=== PATIENT | female | born 1975 | race Caucasian/White ===

== ENCOUNTER → 2018-04-01 07:50 | Outpatient (CLI) | payer OTHER, SELFPAY ==
--- NOTE | 2018-04-01 08:05 | US_ITS ---
STUDY: ABDOMINAL WALL ULTRASOUND REASON FOR EXAM: Female, 42 years old. Palpable lump near the umbilicus TECHNIQUE: Sonographic evaluation of the abdominal wall superior to the umbilicus COMPARISON: None. FINDINGS: There is sonographic evidence of a subcutaneous lymph node measuring 2.6 x 3.2 x 1.1 cm. There is some vascularity adjacent to the lymph node but there is no evidence of a fluid collection or draining sinus. US/Abdomen Limited IMPRESSION: Subcutaneous lymph node corresponds to the palpable lump just superior to the umbilicus. Electronically Signed: Mark Persaud MD at 9:15 EDT , Service support ,
[2018-04-01 08:53] LABS: Color, Urine Yellow (Yellow); Glucose, Dipstick Normal (Normal); Ketone-Dipstick Negative (Negative); Leukocyte Esterase-Dipstick 500 /ul (Negative); Nitrite-Dipstick Negative (Negative); Occult Blood-Urine 25 /ul (Negative); Protein-Dipstick 30 mg/dl (Negative); Urine Bilirubin Dipstick Negative (Negative); Urine Clarity Clear (Clear); Urine Urobilinogen Normal (Normal); Urine pH 6.5 (5.0 - 8.0)
[2018-04-01 08:55] LABS: Absolute Lymphocyte Count 1.73 X10^3/ul (0.83-4.51); Absolute Neutrophil Count 2.5 X10^3/uL (2.0-7.7); Basophil# 0.06 X10^3/uL; Basophil% 1.2 % (0-1); Eosinophil# 0.09 X10^3/uL; Eosinophils% 1.9 % (0-5); Hematocrit 36.9 % (37-47); Hemoglobin 12.5 g/dl (12.0-15.0); Lymphocyte # 1.73 X10^3/ul (4.0); Lymphocyte % 35.7 % (19-41); Mean Corp Hgb Conc 33.9 g/gl (32-36); Mean Corpuscular Hgb 31.5 pg (27.0-32.0); Mean Corpuscular Volume 92.9 fL (81-99); Mean Platelet Vol. 10.2 fl (6.2-12.0); Monocyte# 0.47 X10^3/uL; Monocyte% 9.7 % (0-10); Neutrophil # 2.49 X10^3/uL (2.7-7.7); Neutrophil % 51.3 % (47-70); Platelet Count 260 K/mm3 (150-450); RBC Distribution Width CV 12.5 % (11.6-14.6); RBC Distribution Width SD 41.8 fl (35.1-43.9); Red Blood Count 3.97 M/mm3 (4.2-5.4); White Blood Count 4.9 K/mm3 (4.4-11.0)
[2018-04-01 09:01] LABS: POSITIVE COUNT NO; POSITIVE DIFFERENTIAL NO; POSITIVE MORPHOLOGY NO
[2018-04-01 09:19] LABS: ALB/GLOB Ratio 1.3 RATIO (0.9-2.4); AST(SGOT) 10 U/L (15-37); Alanine Aminotransfer ALT/SGPT 22 U/L (13-56); Albumin, Serum 3.9 g/dL (3.2-5.0); Alkaline Phosphatase 41 U/L (45-117); Anion Gap 5 (5-15); BUN 13 mg/dL (7-18); BUN/Creat Ratio 14.5 RATIO (10-20); Calcium,Total 8.3 mg/dL (8.5-10.1); Chloride 106 mmol/L (98-107); Cholesterol 191 mg/dL (200); EST Glomerular Filtration Rate 73 mL/min (>60); Est Glom Filt Rate - Afr Amer 88 mL/min (>60); Globulin 3.1 g/dL (2.2-4.2); Glucose 96 mg/dL (74-106); High Density Lipoprotein 56 mg/dL; Sodium Level 140 mmol/L (136-145); Triglycerides 90 mg/dL; Very Low Density Lipoprotein 18 mg/dL (5-40)
== END ==
PROVIDERS: Family Provider Family Medicine; PCP Family Medicine; Visit Provider Family Medicine
DX: Z00.00 Encounter for general adult medical examination without abnormal findings (principal); R19.00 Intra-abdominal and pelvic swelling, mass and lump, unspecified site
CPT/HCPCS: 36415; 76705; 80053; 80061; 81002; 85025

== ENCOUNTER 2018-05-05 10:45 | Day surgery (SDC) | payer OTHER, SELFPAY ==
--- NOTE | 2018-05-05 | HERN_PTH ---
PATIENT: LING MARTINEZ LOC: [facility] [place] U#:[id number] AGE/SX: 42/F ROOM: RE05/05/[address]: Dr. Dave Jiménez MD : 1975 BED: DIS: 05/05/2018 SPEC #: [id number] RECD: 05/06/18 13:21 STATUS: ELIDA JOHN #: [id number] JUAN MANUEL: 05/05/18 00:[address]: Dave Jiménez DEPT: SURGICAL PATHOLOGY RECD BY: Tenzin Pascual ENTERED: 05/06/18 13:21 SP TYPE: Hernia OTHR DR: Dr. Satnam Díaz MD Tissues: HERNIA Procedures: Surgery Specimen Level II HEADER OPERATION: Open ventral hernia repair with mesh PRE-OP DIAGNOSIS: Ventral hernia without obstruction TISSUE SUBMITTED: Ventral hernia sac MICROSCOPIC DIAGNOSIS Ventral hernia sac, excision: Fragment of fibrofatty tissue consistent with hernia sac. AM:marcellus 05/07/18 MICROSCOPIC DESCRIPTION Slides are reviewed. GROSS DESCRIPTION Received in fixative is one container labeled with the patient's name and designated ventral hernia sac. The specimen consists of an irregular fragment of yellow fatty tissue measuring 3.5 x 2.6 x 1.6 cm. Sections reveal homogenous yellow cut surfaces without areas of cyst formation or necrosis. Statistical Financial Analyst sections are submitted in one cassette. / AM:marcellus 05/06/18 TC:5 CPT: 88687
[2018-05-05 11:10] VITALS: BP 128/91; PULSE 78; RESP 16; TEMP 37; O2SAT 99; BMI 27.0
[2018-05-05] MEDS: Cefazolin 2 GM in 0.9% Normal Saline 100 ML IV (13:00)
--- NOTE | 2018-05-05 13:00 | PCM.OPRPT ---
Problem List (1) Ventral hernia without obstruction or gangrene Status: Acute Report of Operation Date of Procedure: 05/05/18 Pre-Operative Diagnosis: K43.9 ventral hernia without obstruction Post-Operative Diagnosis: Same Surgery/Procedure Performed:: Ventral hernia repair with mesh Type of Anesthesia:: General Anesthesiologist: Saul Perera Description of Procedure: Patient was brought into the operating room and placed in the supine position. Under excellent general endotracheal intubation the abdomen was sterilely prepped and draped in usual fashion. Incision was made transversely above the umbilicus dissection was carried down hernia containing fat was identified. I tied this off using 0 Vicryl ties and placed back into its preperitoneal space was amazed at the defect was extremely small less than 1 cm in size. I close this defect with a bwrdrm-zi-yavac suture of #1 Nurolon. I then placed a Bard soft mesh on top of this and sutured it in place with 2-0 Nurolon's. Mesh lot number [id number] reference #[id number] Exparel was injected into the subcutaneous muscles and in the subcutaneous tissues wound was brought together in layers subcu layer of 2-0 Vicryl deep dermal layer of 3-0 Vicryl in a running 4-0 Monocryl Steri-Strips applied sterile dressings applied and the patient tolerated the procedure well - Admit VTE Documentation VTE Present on Admission: No VTE Mechan Device Prophylaxis: SCD's VTE Pharm Prophylaxis ordered?: No Reason prophylaxis not ordered:: Treatment Not Indicated
--- NOTE | 2018-05-05 13:02 | PCM.DC.HER ---
Discharge Diet: Light diet - advance as tolerated Discharge Activity: Return to Normal Activity, May Drive - when you are no longer taking narcotic pain medications., May Shower - with the bandage in place 1-2 days after surgery. Lifting Restrictions: 20 pounds for 8 weeks. Additional Activity Instructions:: Climbing stairs is fine, walking is encouraged. Sitting in bed may be uncomfortable. Sitting up using your lateral muscles (sitting up sideways) is usually more comfortable. Do not drive, work heavy equipment of sign legal documents for 24 hours. If your hernia repair was an ingunial repair, you may have scrotal swelling, an ice pack and/or athletic support can provide more comfort. Pain medications may cause nausea, you should typically eat light foods as you take your pain medications. Pain medications may also cause constipation. If you have difficulty with this, discuss with your doctor. Call your doctor if your incision/area has: Continuous Slow Oozing, Sudden Increased Bleeding, Increased Pain/ Swelling, Increased Redness, Foul Smelling Discharge Call your doctor if you observe: Fever of 101 or Higher Suture Line Care: Avoid Pulling/Pushing, Avoid Pinching/Bending Additional Dressing/Incision Instructions:: Leave the operative bandage on for 2-3 days. When you remove the bandage, leave the steri-strips on place until your follow up appointment or they fall off. Allergies/Adverse Reactions: Allergies No Known Allergies Allergy (Verified 04/28/18 12:32) Medications to take at Discharge Bisacodyl [Dulcolax] 5 mg PO DAILY 10/06/13 dicyclomine 20 mg tablet 20 mg PO QHS tab 04/09/18 pantoprazole 40 mg tablet,delayed release 40 mg PO QDAY 04/09/18 Oxycodone HCl/Acetaminophen [Percocet 5/325] 1 - 2 tab PO Q4H PRN PRN 4 Days #30 tab 05/05/18 The following prescriptions were given: Oxycodone HCl/Acetaminophen [Percocet 5/325] 1 - 2 tab PO Q4H PRN PRN 4 Days #30 tab PRN Reason: Pain Primary Care Physician: Satnam Díaz MD [Primary Care Provider] - Test Results: Test results from this visit will be discussed in further detail at your follow-up appointment, if applicable. Please Follow Up With: Dave Jiménez MD - [phone] When: Plan to have a follow up appointment in 7 days. Call to schedule.
[2018-05-05] MEDS: BUPIVACAINE LIPOSOME/PF 20 ML VIAL OPERA.SITE (13:42)
[2018-05-05 13:55] VITALS: BP 105/72; BP 128/91; PULSE 78; RESP 16; TEMP 36.6; O2SAT 98
[2018-05-05 14:00] VITALS: BP 105/73; BP 128/91; PULSE 78; RESP 16; O2SAT 98
[2018-05-05 14:15] VITALS: BP 111/73; BP 128/91; PULSE 75; RESP 16; TEMP 36.9; O2SAT 100
[2018-05-05 15:42] VITALS: BP 117/75; BP 128/91; PULSE 74; RESP 16; TEMP 36.5; O2SAT 100
== END 2018-05-05 15:56 | disposition home or self-care (01) ==
LOC: SDC 10:45 → AC 10:46
PROVIDERS: Family Provider Family Medicine; PCP Family Medicine; Visit Provider Surgery
PROC: (CPT 49560; principal; 2018-05-05 12:45)
DX: K43.9 Ventral hernia without obstruction or gangrene (principal); Z79.899 Other long term (current) drug therapy; K21.9 Gastro-esophageal reflux disease without esophagitis; K59.00 Constipation, unspecified
CPT/HCPCS: 49560; 49568; 88302; J7120; J2405; J3490

== ENCOUNTER 2018-10-21 07:51 | Day surgery (SDC) | payer OTHER, SELFPAY ==
[2018-10-21] VITALS (7 sets, daily range): BP systolic 107–130; BP diastolic 71–86; PULSE 75–93; RESP 16–18; TEMP 36.3–36.7; O2SAT 100; BMI 28.8
--- NOTE | 2018-10-21 09:00 | IMM_PTH ---
PATIENT: LING MARTINEZ LOC: [place] U#:[id number] AGE/SX: 43/F ROOM: RE10/21/[address]: Dr. Dave Jiménez MD : 1975 BED: DIS: 10/21/2018 SPEC #: [id number] RECD: 10/21/18 14:05 STATUS: ELIDA REPatricio #: [id number] JUAN MANUEL: 10/21/18 09:[address]: Dave Jiménez DEPT: IMMUNOHISTOCHEMISTRY RECD BY: Rosalia Trevizo ENTERED: 10/21/18 14:06 SP TYPE: IMMUNO OTHR DR: Dr. Satnam Díaz MD Tissues: Stomach, NOS Procedures: H Pylori (initial) PHYSICIAN & INSTITUTION [place] [id number] SPECIMEN INFORMATION: Tissue Source: A - Antral biopsy Clinical Info: Epigastric abdominal pain Specimen Number: [id number] CPT code: 89196 METHODOLOGY: Deparaffinized sections of prefer/formalin-fixed tissue or PAP/DQ stained slides are incubated with monoclonal/polyclonal antibodies/oligonucleotide probes. Localization is made via biotin free immunoperoxidase method. Appropriate controls are performed and reacted as expected. Results on target cell population are indicated in the following table: RESULTS: ANTIBODY / CLONE RESULT Block A H Pylori (polyclonal) negative These tests were developed and their performance characteristics determined by [facility]. They may not have been cleared or approved by the U.S. Food and Drug Administration. The FDA has determined that such clearance or approval is not necessary. INTERPRETATION: A. Antral biopsy: Negative for Helicobacter pylori organisms. SJ:marcellus 10/22/18
--- NOTE | 2018-10-21 09:00 | EGD_PTH ---
PATIENT: LING MARTINEZ LOC: [place] U#:[id number] AGE/SX: 43/F ROOM: RE10/21/[address]: Dr. Dave Jiménez MD : 1975 BED: DIS: 10/21/2018 SPEC #: [id number] RECD: 10/21/18 10:50 STATUS: ELIDA JOHN #: [id number] JUAN MANUEL: 10/21/18 09:[address]: Dave Jiménez DEPT: SURGICAL PATHOLOGY RECD BY: Umesh Murphy ENTERED: 10/21/18 13:22 SP TYPE: EGD BIOPSY OT DR: Dr. Satnam Díaz MD Tissues: Gastric mucous membrane Procedures: Surgery Specimen Level IV HEADER OPERATION: EGD ([facility] [place] PRE-OP DIAGNOSIS: Epigastric abdominal pain TISSUE SUBMITTED: Antral biopsy for H. pylori and pathology MICROSCOPIC DIAGNOSIS Antral biopsy: Mild gastritis. See microscopic description and comment. SJ:marcellus 10/22/18 COMMENT The results of immunohistochemistry for Helicobacter pylori will be reported separately ([id number]). MICROSCOPIC DESCRIPTION Slides are reviewed. The specimen shows fragments of gastric mucosa with chronic inflammatory cell infiltrates in the lamina propria consisting of lymphocytes and plasma cells, consistent with mild chronic gastritis. GROSS DESCRIPTION Received in fixative is one container labeled with the patient's name and designated antral biopsy. The specimen consists of one irregular fragment of light song soft tissue that measures 0.5 x 0.2 x 0.1 cm. The specimen is totally submitted in one cassette. / AM:marcellus 10/21/18 TC:3 CPT: 11369
--- NOTE | 2018-10-21 09:17 | OP.ENDO_ITS ---
Patient Name: Keisha Li Procedure Date: 10/21/2018 8:59 AM Date of : 1975 Age: 43 Procedure: Upper GI endoscopy Indications: Epigastric abdominal pain, Nausea Providers: Dave Jiménez MD Referring MD: Dave Jiménez MD Medicines: See the Anesthesia note for documentation of the administered medications Patient Profile: This is a 43 year old female. Refer to note in patient chart for documentation of history and physical. Complications: No immediate complications. Procedure: Pre-Anesthesia Assessment: - Prior to the procedure, a History and Physical was performed, and patient medications and allergies were reviewed. The patient's tolerance of previous anesthesia was also reviewed. The risks and benefits of the procedure and the sedation options and risks were discussed with the patient. All questions were answered, and informed consent was obtained. Prior Anticoagulants: The patient has taken no previous anticoagulant or antiplatelet agents. ASA Grade Assessment: II - A patient with mild systemic disease. After reviewing the risks and benefits, the patient was deemed in satisfactory condition to undergo the procedure. After obtaining informed consent, the endoscope was passed under direct vision. Throughout the procedure, the patient's blood pressure, pulse, and oxygen saturations were monitored continuously. The gastroscope was introduced through the mouth, and advanced to the second part of duodenum. The upper GI endoscopy was accomplished without difficulty. The patient tolerated the procedure well. Scope In: 9:08:59 AM Scope Out: 9:12:30 AM Total Procedure Duration Time 0 hours 3 minutes 31 seconds Findings: The Z-line was regular and was found 40 cm from the incisors. No biopsies or other specimens were collected for this exam. Localized mild inflammation characterized by congestion (edema), erosions and erythema was found in the prepyloric region of the stomach. Biopsies were taken with a cold forceps for Helicobacter pylori testing. The examined duodenum was normal. No biopsies or other specimens were collected for this exam. No hiatal hernia was identified. Impression: - Z-line regular, 40 cm from the incisors. No specimens collected. - Gastritis. Biopsied. - Normal examined duodenum. No specimens collected. Recommendation: - Discharge patient to home. - Resume previous diet. - Continue present medications. - Await pathology results. - Repeat upper endoscopy at appointment to be scheduled for surveillance. - Return to my office in 1 week. Procedure Code(s): --- Professional --- 62275, Esophagogastroduodenoscopy, flexible, transoral; with biopsy, single or multiple Diagnosis Code(s): --- Professional --- K29.70, Gastritis, unspecified, without bleeding R10.13, Epigastric pain R11.0, Nausea CPT copyright 2017 [employer]. All rights reserved. The codes documented in this report are preliminary and upon centerpuncher review may be revised to meet current compliance requirements. MD Dave Muhammad MD 10/21/2018 9:17:28 AM This report has been signed electronically. Number of Addenda: 0 Note Initiated On: 10/21/2018 8:59 AM
== END 2018-10-21 09:54 | disposition home or self-care (01) ==
LOC: EN 07:53 → AC 07:54
PROVIDERS: Family Provider Family Medicine; PCP Family Medicine; Referring Provider Surgery; Visit Provider Surgery
PROC: 0DJ08ZZ Inspection of Upper Intestinal Tract, Via Natural or Artificial Opening Endoscopic (ICD-10-PCS; CPT 43235; principal; 2018-10-21 08:55)
DX: K29.70 Gastritis, unspecified, without bleeding (principal); K21.9 Gastro-esophageal reflux disease without esophagitis; K58.9 Irritable bowel syndrome, unspecified; Z87.19 Personal history of other diseases of the digestive system; Z87.891 Personal history of nicotine dependence
CPT/HCPCS: 43239; 88305; 88342; J7120; J2405

== ENCOUNTER → 2019-01-14 | Outpatient (CLI) | payer OTHER, SELFPAY ==
[2019-01-01 08:02] VITALS: BMI 28.8
[2019-01-14 13:37] LABS: Erythrocyte Sedimentation Rate < 1 mm/hr (0-20)
[2019-01-14 13:40] LABS: Absolute Lymphocyte Count 1.87 X10^3/ul (0.83-4.51); Absolute Neutrophil Count 3.3 X10^3/uL (2.0-7.7); Basophil# 0.03 X10^3/uL; Basophil% 0.5 % (0-1); Eosinophil# 0.05 X10^3/uL; Eosinophils% 0.9 % (0-5); Hematocrit 38.5 % (37-47); Hemoglobin 12.7 g/dl (12.0-15.0); Lymphocyte # 1.87 X10^3/ul (4.0); Lymphocyte % 33.5 % (19-41); Mean Corpuscular Hgb 29.9 pg (27.0-32.0); Mean Corpuscular Volume 90.6 fL (81-99); Monocyte# 0.35 X10^3/uL; Monocyte% 6.3 % (0-10); Neutrophil # 3.27 X10^3/uL (2.7-7.7); Neutrophil % 58.6 % (47-70); Platelet Count 272 K/mm3 (150-450); RBC Distribution Width SD 42.8 fl (35.1-43.9); Red Blood Count 4.25 M/mm3 (4.2-5.4); White Blood Count 5.6 K/mm3 (4.4-11.0)
[2019-01-14 13:41] LABS: POSITIVE COUNT NO; POSITIVE DIFFERENTIAL NO; POSITIVE MORPHOLOGY NO
[2019-01-14 13:51] LABS: Internal QC Validated? YES +Cl - CLEAR BKGD; Pregnancy, Serum, hCG Quali. NEGATIVE Negative
[2019-01-14 14:07] LABS: ALB/GLOB Ratio 1.3 RATIO (0.9-2.4); AST(SGOT) 10 U/L (15-37); Alanine Aminotransfer ALT/SGPT 20 U/L (13-56); Albumin, Serum 4.1 g/dL (3.2-5.0); Alkaline Phosphatase 48 U/L (45-117); Amylase 34 U/L (25-115); Anion Gap 6 (5-15); BUN 13 mg/dL (7-18); BUN/Creat Ratio 15.5 RATIO (10-20); Calcium,Total 8.9 mg/dL (8.5-10.1); Chloride 107 mmol/L (98-107); Creatinine, Serum 0.84 mg/dL (0.55-1.02); EST Glomerular Filtration Rate 79 mL/min (>60); Est Glom Filt Rate - Afr Amer 95 mL/min (>60); Globulin 3.2 g/dL (2.2-4.2); Glucose 91 mg/dL (74-106); Potassium 3.9 mmol/L (3.5-5.1); Protein, Total 7.3 g/dL (6.4-8.2); Sodium Level 141 mmol/L (136-145); Thyroid Stim Hormone (TSH) 1.25 uIU/mL (0.358-3.74)
[2019-01-15 16:07] LABS: Endomysial Antibody IgA Negative (Negative)
[2019-01-18 13:51] LABS: Immunoglobulin A 118 mg/dL (87-352); t-Transglutaminase IgA <2 U/mL (0-3)
== END | disposition home or self-care (01) ==
LOC: LAB 12:17
PROVIDERS: Family Provider Family Medicine; PCP Family Medicine; Referring Provider Internal Medicine Gastroenterology; Visit Provider Internal Medicine Gastroenterology
DX: R10.84 Generalized abdominal pain (principal)
CPT/HCPCS: 36415; 80053; 82150; 82784; 83516; 84443; 84703; 85025; 85652; 86255

== ENCOUNTER → 2019-01-22 | Outpatient (CLI) | payer OTHER, SELFPAY ==
[2019-01-01 08:02] VITALS: BMI 28.8
--- NOTE | 2019-01-22 06:59 | CT_ITS ---
STUDY: CT ABDOMEN AND PELVIS WITH CONTRAST REASON FOR EXAM: Female, 43 years old. Epigastric pain. History of prior ventral hernia repair. RADIATION DOSAGE (If Supplied By Facility): CTDIvol = ( 11.11 ) mGy, DLP = ( 771.39 ) mGycm TECHNIQUE: Transaxial images were obtained from the dome of the diaphragm to the symphysis pubis with oral contrast. 100 IV/Oral Isovue 300 was administered. Sagittal and coronal images were reconstructed. Individualized dose optimization techniques were used for this CT. COMPARISON: Comparison is made with prior study dated May 02, 2015. FINDINGS: The visualized lung bases are unremarkable. The visualized portions of the heart are within normal limits. Normal liver. Normal gallbladder and extrahepatic biliary system. Normal spleen. Normal pancreas. Normal bilateral adrenal glands. Normal right kidney. Normal left kidney. Normal visualized stomach. Normal small intestine. Moderate amount of fecal material is seen in the colon. The appendix is visualized and appears normal. Normal abdominal aorta. Normal inferior vena cava. Normal retroperitoneum. Normal urinary bladder. Small follicles are seen in the right ovary. Normal abdominal wall. Normal osseous structures. CT/Abdomen/Pelvis WITH Contrast IMPRESSION: Normal enhanced CT of the abdomen and pelvis. Electronically Signed: Dio Martin, at 10:58 EDT , Service support ,
== END | disposition home or self-care (01) ==
PROVIDERS: Family Provider Family Medicine; PCP Family Medicine; Referring Provider Internal Medicine Gastroenterology; Visit Provider Internal Medicine Gastroenterology
DX: K59.09 Other constipation (principal); R11.0 Nausea; R10.13 Epigastric pain
CPT/HCPCS: 74177; Q9967

== ENCOUNTER 2019-03-11 10:10 | Emergency (ER) | payer OTHER, SELFPAY ==
[2019-01-01 08:02] VITALS: BMI 28.8
[2019-03-11 10:11] VITALS: BP 119/87; PULSE 108; RESP 18; TEMP 36.8; O2SAT 100; BMI 28.1
--- NOTE | 2019-03-11 10:51 | ED.VIS.GEN ---
History of Present Illness Chief Complaint: Lower Extremity Injury Informant: Patient Onset: Yesterday Context: Sudden Onset Timing: Continuous Quality: Pain Location: Posterior right ankle and leg over the Achilles tendon. Current Severity: Mild Maximum Severity: Moderate Worsened by: Pressure Relieved by: Nothing Associated Symptoms: No associated symptoms Narrative: Patient is a 43-year-old woman who presents because of posterior right foot and ankle pain that started yesterday when she crossed her right leg over her left. She localizes the pain over the Achilles tendon. She denies prior injury of the Achilles tendon or injury of the ankle. She states the pain radiated up to the calf. She now complains of pain at the insertion site of the Achilles tendon. She is able to plantar and dorsiflex without discomfort. Prior similar symptoms: No Recent Illness/Hospitalization: No - Past Medical History (1) No significant past medical history Status: Acute Past Medical History - Allergies and Home Meds Allergies/Adverse Reactions: Allergies acetaminophen [From Percocet] Allergy (Mild, Verified 03/11/19 10:13) itching oxycodone [From Percocet] Allergy (Mild, Verified 03/11/19 10:13) itching Primary Care Physician: Satnam Díaz MD [Primary Care Provider] - Prior records reviewed: Yes Past Medical History: None Surgical History: - - Ventral hernia Lives: Spouse/ Significant Other Smoking Status: Never smoker Drugs: None Review of Systems General: Denies: Chills, Fever, Malaise, Subjective, Sweats Musculoskeletal: Reports: Extremity Pain - Pain over the right Achilles tendon. Denies: Myalgias, Arthralgias, Neck pain, Back pain, Swelling Skin: Denies: Rash, Abrasions, Wounds Neurological: Denies: Weakness, Parasthesia, Numbness Hematologic: Denies: Easy bruising, Easy bleeding Allergy: Denies: Uticaria, Swelling of the mouth, Swelling of the tongue Physical Exam Vital Signs/Narrative: Vital Signs Temp Pulse Resp BP Pulse Ox 03/11/19 10:11 98.2 F 108 H 18 119/87 H 100 Inital Vital Signs reviewed: Yes General: Well nourished, Well developed, No Acute Distress Head: Normocephalic, Atraumatic Eyes: Perrl, EOMI. Negative for: Pale conjunctiva, Scleral icterus, - Cardiovascular: Regular rate, Regular rhythm Respiratory: No distress Extremities: No edema, Tenderness - Tenderness over the insertion site of the Achilles tendon. Negative for: Nontender, Calf Tenderness Skin: Normal color, No rash, No Trauma. Negative for: Cyanosis, Diaphoresis, Jaundice Neurological: Alert, Oriented x3, Cranial nerves II-XII grossly intact, Normal Strength, Normal Sensation, Normal Gait Psychological: Normal affect, Normal Mood Diagnostic/Tx/Re-eval Chest X-Ray - ED: Read by ED Physician, - - Three-view x-ray of the right ankle was interpreted by me as negative. There is no evidence of arthritis. The tendon appears intact on the lateral view. There is no asymmetry of the joints. There are no abnormalities of any bony structures. - Medical Decision Making X-ray was obtained to evaluate the calcaneus and insertion site of the Achilles tendon. Since patient has tenderness over the Achilles tendon suspect Achilles strain/tendinitis. Will treat with NSAID. ED Disposition - Plan for ED Patient: Disposition: Home or Assisted Living Instructions: Tendonitis Referrals: Satnam Díaz MD [Primary Care Provider] - 1 Week if not improving Additional Instructions: Take either 4 Advil every 8 hours for the next 3 to 5 days or 2 Aleve every 12 hours for the next 3 to 5 days.
--- NOTE | 2019-03-11 11:14 | RAD_ITS ---
STUDY: X-RAY - RIGHT ANKLE REASON FOR EXAM: Female, 43 years old. No injury, pain all night TECHNIQUE: 3 view(s) of the ankle. COMPARISON: None. FINDINGS: Normal visualized distal tibia and fibula. Normal medial and lateral malleoli. Normal tibiotalar articulation and ankle mortise. Normal visualized talus and calcaneus. The visualized subtalar, talonavicular, calcaneocuboid and tarsal articulations are normal. The soft tissue structures are unremarkable. RAD/Ankle min 3 Views IMPRESSION: Normal x-ray examination of the ankle. Electronically Signed: Horacio Neumann MD at 11:47 EDT Tel , Service support ,
== END 2019-03-11 11:49 | disposition home or self-care (01) ==
PROVIDERS: Emergency Provider Emergency Medicine; Family Provider Family Medicine; PCP Family Medicine
DX: M76.61 Achilles tendinitis, right leg (principal)
CPT/HCPCS: 73610; 99282

== ENCOUNTER → 2019-03-16 | Outpatient (CLI) | payer OTHER, SELFPAY ==
[2019-03-16 07:50] VITALS: BMI 28.1
[2019-03-16 14:18] LABS: Color, Urine Yellow (Yellow); Glucose, Dipstick Normal (Normal); Ketone-Dipstick 5 mg/dl (Negative); Leukocyte Esterase-Dipstick 500 /ul (Negative); Nitrite-Dipstick Positive (Negative); Occult Blood-Urine 250 /ul (Negative); Protein-Dipstick 30 mg/dl (Negative); Urine Bilirubin Dipstick Negative (Negative); Urine Clarity Sl. Cloudy (Clear); Urine Urobilinogen Normal (Normal)
[2019-03-16 14:24] LABS: Bacteria 3+ /hpf (None Seen); Mucous, Urine 2+ /hpf (<or=2+); Red Blood Cells-Urine 25-50 SEEN /hpf (0-5); Squamous Epithelial Cells - UA 10-25 SEEN /hpf (5-10); White Blood Cells 50-100 SEEN /hpf (0-5)
== END | disposition home or self-care (01) ==
LOC: LABSPEC 13:53
PROVIDERS: Family Provider Family Medicine; PCP Family Medicine; Referring Provider Physician Assistant Surgical; Visit Provider Physician Assistant Surgical
DX: R30.0 Dysuria (principal)
CPT/HCPCS: 81001; 87077; 87086; 87088; 87186

== ENCOUNTER → 2019-03-22 | Outpatient (CLI) | payer OTHER, SELFPAY ==
[2019-01-01 08:02] VITALS: BMI 28.8
[2019-03-16 07:50] VITALS: BMI 28.1
--- NOTE | 2019-03-22 09:16 | NM_ITS ---
CLINICAL: Female, 43 years old. Vertebra quadrant pain with nausea and vomiting. NUCLEAR BILIARY SCAN TECHNIQUE: Following the intravenous administration of 5.2 mCi of Tc Mebrofenin, hepatobiliary images was performed. Cholecystokinin (0.02 ug/kg) was then administered intravenously over an unspecified time period. COMPARISON STUDIES : NM - None. CR - Not available for review at this time. CT - 01/22/2019. MR - Not available for review at this time. US - Not available for review at this time. FINDINGS: Relatively prompt and homogeneous radiopharmaceutical concentration is noted by a normal sized liver. There are no parenchymal defects noted.. Gallbladder activity is identified at 10 minutes post radiopharmaceutical administration. Small bowel activity is identified at 30 minutes post radiopharmaceutical administration. Washout of the radiopharmaceutical by the hepatic parenchyma occurs in a normal fashion on qualitative inspection. The post Cholecystokinin gallbladder ejection fraction is calculated at 20 minutes following Cholecystokinin administration was noted to be 37% (normal greater than 35%). Ejection fraction at 30 minutes was 47%. NM/Hepatobilliary Img w/Pharm Int IMPRESSION: Normal 99m TC Mebrofenin hepatobiliary imaging survey with Cholecystokinin. A gallbladder ejection fraction calculated to be greater than 35% following the administration of Cholecystokinin makes the probability of functional hepatobiliary disease (gallbladder and/or sphincter of Oddi dyskinesia) and/or organic hepatobiliary disease (chronic acalculous cholecystitis and/or cystic duct syndrome) to be low. (Rogers Cortes al, Journal of Nuclear Medicine 32:1695, 1990). Electronically Signed: Javier Shane MD at 6:37 EDT , Service support ,
== END | disposition home or self-care (01) ==
LOC: NM 09:13
PROVIDERS: Family Provider Family Medicine; PCP Family Medicine; Referring Provider Internal Medicine Gastroenterology; Visit Provider Internal Medicine Gastroenterology
DX: R10.13 Epigastric pain (principal); R11.0 Nausea
CPT/HCPCS: 78227; A9537; J2805

== ENCOUNTER → 2019-03-24 | Outpatient (CLI) | payer OTHER, SELFPAY ==
[2019-03-16 07:50] VITALS: BMI 28.1
[2019-03-24 10:16] LABS: Absolute Lymphocyte Count 2.38 X10^3/uL (0.83-4.51); Absolute Neutrophil Count 4.1 X10^3/uL (2.0-7.7); Basophil# 0.06 X10^3/uL; Basophil% 0.8 % (0-1); Eosinophil# 0.12 X10^3/uL; Eosinophils% 1.6 % (0-5); Hematocrit 38.1 % (37-47); Hemoglobin 12.7 g/dL (12.0-15.0); Lymphocyte # 2.38 X10^3/ul (4.0); Lymphocyte % 32.6 % (19-41); Mean Corp Hgb Conc 33.3 g/dL (32-36); Mean Corpuscular Hgb 30.3 pg (27.0-32.0); Mean Corpuscular Volume 90.9 fL (81-99); Mean Platelet Vol. 10.1 fl (6.2-12.0); Monocyte# 0.59 X10^3/uL; Monocyte% 8.1 % (0-10); NRBC Flagged by Analyzer 0 % (0-5); Neutrophil # 4.12 X10^3/uL (2.7-7.7); Neutrophil % 56.5 % (47-70); Platelet Count 260 K/mm3 (150-450); RBC Distribution Width CV 12.6 % (11.6-14.6); RBC Distribution Width SD 41.6 fl (35.1-43.9); Red Blood Count 4.19 M/mm3 (4.2-5.4); White Blood Count 7.3 K/mm3 (4.4-11.0)
[2019-03-24 10:52] LABS: ALB/GLOB Ratio 1.1 RATIO (0.9-2.4); AST(SGOT) 7 U/L (15-37); Alanine Aminotransfer ALT/SGPT 22 U/L (13-56); Albumin, Serum 3.6 g/dL (3.2-5.0); Alkaline Phosphatase 48 U/L (45-117); Anion Gap 9 (5-15); BUN 15 mg/dL (7-18); BUN/Creat Ratio 17.9 RATIO (10-20); Calcium,Total 8.7 mg/dL (8.5-10.1); Chloride 107 mmol/L (98-107); Cholesterol 180 mg/dL (200); Creatinine, Serum 0.84 mg/dL (0.55-1.02); EST Glomerular Filtration Rate 79 mL/min (>60); Est Glom Filt Rate - Afr Amer 95 mL/min (>60); Globulin 3.2 g/dL (2.2-4.2); Glucose 95 mg/dL (74-106); High Density Lipoprotein 59 mg/dL; Potassium 3.5 mmol/L (3.5-5.1); Protein, Total 6.8 g/dL (6.4-8.2); Sodium Level 140 mmol/L (136-145); Triglycerides 81 mg/dL; Very Low Density Lipoprotein 16 mg/dL (5-40)
[2019-03-24 12:32] LABS: Color, Urine Yellow (Yellow); Glucose, Dipstick Normal (Normal); Ketone-Dipstick Negative (Negative); Leukocyte Esterase-Dipstick Negative /ul (Negative); Nitrite-Dipstick Negative (Negative); Occult Blood-Urine Negative /ul (Negative); Protein-Dipstick 15 mg/dl (Negative); Specific Gravity, Urine 1.025 (1.002-1.030); Urine Bilirubin Dipstick Negative (Negative); Urine Clarity Sl. Cloudy (Clear); Urine Urobilinogen Normal (Normal)
== END | disposition home or self-care (01) ==
LOC: MTLAB 07:30
PROVIDERS: Family Provider Family Medicine; PCP Family Medicine; Referring Provider Family Medicine; Visit Provider Family Medicine
DX: Z00.00 Encounter for general adult medical examination without abnormal findings (principal); R59.1 Generalized enlarged lymph nodes
CPT/HCPCS: 36415; 80053; 80061; 81002; 85025

== ENCOUNTER → 2020-03-17 | Outpatient (CLI) | payer OTHER, SELFPAY ==
[2020-03-17 07:23] VITALS: BMI 28.1
[2020-03-17 10:47] LABS: Mucous, Urine 0 SEEN /hpf (<or=2+)
[2020-03-17 10:59] LABS: Color, Urine Yellow (Yellow); Glucose, Dipstick Normal (Normal); Ketone-Dipstick Negative (Negative); Leukocyte Esterase-Dipstick 500 /ul (Negative); Nitrite-Dipstick Negative (Negative); Occult Blood-Urine 250 /ul (Negative); Protein-Dipstick 30 mg/dl (Negative); Urine Bilirubin Dipstick Negative (Negative); Urine Clarity Sl. Cloudy (Clear); Urine Urobilinogen Normal (Normal)
[2020-03-17 11:09] LABS: Bacteria 1+ /hpf (None Seen); Red Blood Cells-Urine 25-50 SEEN /hpf (0-5); Squamous Epithelial Cells - UA 0-5 SEEN /hpf (5-10); White Blood Cells 25-50 SEEN /hpf (0-5)
== END | disposition home or self-care (01) ==
LOC: LABSPEC 10:33
PROVIDERS: PCP Family Medicine; Referring Provider Physician Assistant Surgical; Visit Provider Physician Assistant Surgical
DX: R35.0 Frequency of micturition (principal)
CPT/HCPCS: 81001; 87077; 87086; 87088; 87186

== ENCOUNTER → 2020-04-12 12:24 | Outpatient (CLI) | payer OTHER, SELFPAY ==
[2020-03-17 07:23] VITALS: BMI 28.1
[2020-04-12 15:29] LABS: Color, Urine Yellow (Yellow); Glucose, Dipstick Normal (Normal); Ketone-Dipstick Negative (Negative); Leukocyte Esterase-Dipstick 500 /ul (Negative); Nitrite-Dipstick Negative (Negative); Occult Blood-Urine Negative /ul (Negative); Protein-Dipstick Negative (Negative); Urine Bilirubin Dipstick Negative (Negative); Urine Clarity Clear (Clear); Urine Urobilinogen Normal (Normal)
[2020-04-12 15:33] LABS: Absolute Neutrophil Count 3.8 X10^3/uL (2.0-7.7); Basophil# 0.07 X10^3/uL; Basophil% 1.1 % (0-1); Eosinophil# 0.04 X10^3/uL; Eosinophils% 0.6 % (0-5); Hematocrit 38.7 % (37-47); Hemoglobin 12.4 g/dL (12.0-15.0); Lymphocyte % 29.4 % (19-41); Mean Corpuscular Hgb 30.1 pg (27.0-32.0); Mean Corpuscular Volume 93.9 fL (81-99); Mean Platelet Vol. 9.9 fl (6.2-12.0); Monocyte# 0.59 X10^3/uL; Monocyte% 9.1 % (0-10); NRBC Flagged by Analyzer 0 % (0-5); Neutrophil # 3.83 X10^3/uL (2.7-7.7); Neutrophil % 59.2 % (47-70); Platelet Count 310 K/mm3 (150-450); RBC Distribution Width CV 12.7 % (11.6-14.6); RBC Distribution Width SD 43.7 fl (35.1-43.9); Red Blood Count 4.12 M/mm3 (4.2-5.4); White Blood Count 6.5 K/mm3 (4.4-11.0)
[2020-04-12 15:49] LABS: ALB/GLOB Ratio 1.3 RATIO (0.9-2.4); AST(SGOT) 10 U/L (15-37); Alanine Aminotransfer ALT/SGPT 29 U/L (13-56); Albumin, Serum 4.1 g/dL (3.2-5.0); Alkaline Phosphatase 46 U/L (45-117); Anion Gap 5 (5-15); BUN 10 mg/dL (7-18); BUN/Creat Ratio 12.2 RATIO (10-20); Calcium,Total 8.5 mg/dL (8.5-10.1); Chloride 104 mmol/L (98-107); Cholesterol 197 mg/dL (200); Creatinine, Serum 0.82 mg/dL (0.55-1.02); EST Glomerular Filtration Rate 81 mL/min (>60); Est Glom Filt Rate - Afr Amer 97 mL/min (>60); Globulin 3.1 g/dL (2.2-4.2); Glucose 95 mg/dL (74-106); High Density Lipoprotein 58 mg/dL; Potassium 3.8 mmol/L (3.5-5.1); Protein, Total 7.2 g/dL (6.4-8.2); Sodium Level 136 mmol/L (136-145); Triglycerides 122 mg/dL; Very Low Density Lipoprotein 24 mg/dL (5-40)
== END ==
PROVIDERS: PCP Family Medicine; Referring Provider Family Medicine; Visit Provider Family Medicine
DX: Z00.00 Encounter for general adult medical examination without abnormal findings (principal)
CPT/HCPCS: 36415; 80053; 80061; 81002; 85025

== ENCOUNTER → 2021-04-26 07:26 | Outpatient (CLI) | payer OTHER, SELFPAY ==
[2021-04-26 10:19] LABS: Absolute Lymphocyte Count 2.02 X10^3/uL (0.83-4.51); Absolute Neutrophil Count 2.6 X10^3/uL (2.0-7.7); Basophil# 0.07 X10^3/uL; Basophil% 1.3 % (0-1); Eosinophil# 0.08 X10^3/uL; Eosinophils% 1.5 % (0-5); Hematocrit 36.3 % (37-47); Hemoglobin 12.1 g/dL (12.0-15.0); Lymphocyte # 2.02 X10^3/ul (0.83-4.51); Mean Corp Hgb Conc 33.3 g/dL (32-36); Mean Corpuscular Hgb 30.6 pg (27.0-32.0); Mean Corpuscular Volume 91.7 fL (81-99); Mean Platelet Vol. 10.1 fl (6.2-12.0); Monocyte# 0.48 X10^3/uL; NRBC Flagged by Analyzer 0 % (0-5); Neutrophil # 2.64 X10^3/uL (2.7-7.7); Neutrophil % 49.8 % (47-70); Platelet Count 265 K/mm3 (150-450); RBC Distribution Width CV 12.6 % (11.6-14.6); RBC Distribution Width SD 42.1 fl (35.1-43.9); Red Blood Count 3.96 M/mm3 (4.2-5.4); White Blood Count 5.3 K/mm3 (4.4-11.0)
[2021-04-26 11:34] LABS: ALB/GLOB Ratio 1.1 RATIO (0.9-2.4); AST(SGOT) 8 U/L (15-37); Alanine Aminotransfer ALT/SGPT 22 U/L (13-56); Albumin, Serum 3.5 g/dL (3.2-5.0); Alkaline Phosphatase 51 U/L (45-117); Anion Gap 4 (5-15); BUN 12 mg/dL (7-18); Calcium,Total 8.5 mg/dL (8.5-10.1); Chloride 106 mmol/L (98-107); Cholesterol 204 mg/dL (200); Creatinine, Serum 0.71 mg/dL (0.55-1.02); EST Glomerular Filtration Rate 95 mL/min (>60); Est Glom Filt Rate - Afr Amer 115 mL/min (>60); Globulin 3.1 g/dL (2.2-4.2); Glucose 96 mg/dL (74-106); High Density Lipoprotein 62 mg/dL; Potassium 3.5 mmol/L (3.5-5.1); Protein, Total 6.6 g/dL (6.4-8.2); Sodium Level 139 mmol/L (136-145); Triglycerides 133 mg/dL; Very Low Density Lipoprotein 27 mg/dL (5-40)
== END ==
PROVIDERS: PCP Family Medicine; Referring Provider Family Medicine; Visit Provider Family Medicine
DX: Z00.00 Encounter for general adult medical examination without abnormal findings (principal); Z12.31 Encounter for screening mammogram for malignant neoplasm of breast
CPT/HCPCS: 36415; 80053; 80061; 85025

== ENCOUNTER → 2021-05-21 | Outpatient (CLI) | payer OTHER, SELFPAY | END | disposition home or self-care (01) | LOC: LABSPEC 10:20 | PROVIDERS: PCP Family Medicine; Visit Provider Physician Assistant Surgical | DX: Z11.52 Encounter for screening for COVID-19 (principal) | CPT/HCPCS: 87635; U0005; U0003 ==

== ENCOUNTER → 2022-04-22 | Outpatient (CLI) | payer OTHER, SELFPAY | END | disposition home or self-care (01) | LOC: LABSPEC 09:55 | PROVIDERS: PCP Family Medicine; Referring Provider Physician Assistant Surgical; Visit Provider Physician Assistant Surgical | DX: R30.9 Painful micturition, unspecified (principal) | CPT/HCPCS: 87086; 87088; 87186 ==

== ENCOUNTER → 2022-08-15 | Outpatient (CLI) | payer OTHER, SELFPAY ==
[2022-08-15 10:16] LABS: Color, Urine Yellow (Yellow); Glucose, Dipstick Normal (Normal); Ketone-Dipstick 5 mg/dl (Negative); Leukocyte Esterase-Dipstick 500 /ul (Negative); Nitrite-Dipstick Positive (Negative); Occult Blood-Urine 250 /ul (Negative); Protein-Dipstick 30 mg/dl (Negative); Urine Bilirubin Dipstick Negative (Negative); Urine Clarity Turbid (Clear); Urine Urobilinogen Normal (Normal)
[2022-08-15 10:30] LABS: Bacteria 4+ /hpf (None Seen); Mucous, Urine 2+ /hpf (<or=2+); Red Blood Cells-Urine 25-50 SEEN /hpf (0-5); Squamous Epithelial Cells - UA 0-5 SEEN /hpf (5-10); White Blood Cells >100 SEEN /hpf (0-5)
== END | disposition home or self-care (01) ==
LOC: LABSPEC 09:58
PROVIDERS: PCP Family Medicine; Visit Provider Physician Assistant
DX: N30.00 Acute cystitis without hematuria (principal)
CPT/HCPCS: 81001; 87077; 87086; 87088; 87186

== ENCOUNTER → 2022-09-05 | Outpatient (CLI) | payer OTHER, SELFPAY ==
--- NOTE | 2022-09-05 12:44 | US_ITS ---
STUDY: RENAL ULTRASOUND - COMPLETE REASON FOR EXAM: Female, 46 years old. Flank pain TECHNIQUE: Ultrasound evaluation of the kidneys was performed with real-time and static mares-scale imaging. COMPARISON: None. FINDINGS: RIGHT KIDNEY: Normal location of the right kidney, which is normal in size. The right kidney measures 13.1 x 5.7 x 4.5 cm. There is a normal cortex of the right kidney. The renal cortex measures 1.6 cm. There is no right renal mass or cyst. There are no right renal calculi. There is no right hydronephrosis. DISTAL RIGHT URETER: There is non-visualization of the distal right ureter. There is no demonstrated right ureterovesical junction calculus. There is a visualized right ureteral jet. LEFT KIDNEY: Normal location of the left kidney, which is normal in size. The left kidney measures 10.4 x 4.5 x 4.9 cm. There is a normal cortex of the left kidney. The renal cortex measures 1.8 cm. There is no left renal mass or cyst. There are no left renal calculi. There is no left hydronephrosis. DISTAL LEFT URETER: There is non-visualization of the distal left ureter. There is no demonstrated left ureterovesical junction calculus. There is a visualized left ureteral jet. AORTA: There is no elongation or tortuosity of the abdominal aorta. I.V.C.: The IVC is patent. BLADDER: The bladder is incompletely distended with a volume of 72 mL postvoid residual is 13. Incidental note is made of cholelithiasis US/Kidney and Bladder IMPRESSION: Sonographically normal kidneys Cholelithiasis Electronically Signed: Mark Persaud MD at 15:25 EST ,
== END | disposition home or self-care (01) ==
PROVIDERS: PCP Family Medicine; Visit Provider Urology
DX: K80.20 Calculus of gallbladder without cholecystitis without obstruction (principal); N39.0 Urinary tract infection, site not specified
CPT/HCPCS: 76770

== ENCOUNTER 2023-04-25 08:12 | Emergency (ER) | payer OTHER, SELFPAY ==
[2023-04-25 08:13] VITALS: BP 148/88; PULSE 91; RESP 14; TEMP 35.8; O2SAT 100; BMI 28.8
--- NOTE | 2023-04-25 08:23 | EDS_ITS ---
HPI HPI - GI History of Present Illness Chief Complaint: Abd Pain Detail of Chief Complaint: Epigastric pain. Informant: patient Abdominal Pain/Flank Pain Onset: Today and Yesterday Context: Gradual Onset Timing: Continuous Quality: Aching and Cramping Location: Epigastric Current Severity: Mild Maximum Severity: Mild Nausea/Vomiting/Emesis GI Symptom: Positive for Nausea and Vomiting Onset: Today Quality: Positive for Nonbilious Severity: Mild Diarrhea/Melena/Hematochezia GI Symptom: Negative for Diarrhea, Melena or Hematochezia Associated Symptoms Associated Symptoms: Negative for Dysuria, Frequency, Hematuria or Urgency Narrative Narrative: 47-year-old female history of irritable bowel. Prior hernia repair surgery and cholecystectomy earlier this year. States around 5 PM yesterday had onset of epigastric and upper abdominal discomfort. Nausea and vomiting today. No hematemesis. No melena. No fever. No weight change. No diarrhea. No dysuria. No lower abdominal discomfort. Nothing particular makes it feel better or worse. Prior similar symptoms: Yes Recent Illness/Hospitalization: No PFSH PFSH Medical History Acute bronchitis, unspecified Acute pharyngitis, unspecified Constipation Encounter for screening for COVID-19 GERD (gastroesophageal reflux disease) History of duodenal ulcer Urinary tract infection with hematuria Home Medications bisacodyl 5 mg tablet,delayed release 5 mg PO DAILY 10/06/13 [History Last Taken 10/05/13] dicyclomine 20 mg tablet 20 mg PO QHS 04/09/18 [History Last Taken Unknown] pantoprazole 40 mg tablet,delayed release 40 mg PO QDAY 04/09/18 [History Last Taken 10/21/18 06:45] Allergy/AdvReac Type Severity Reaction Status Date / Time acetaminophen [From Percocet] Allergy Mild itching Verified 04/25/23 08:16 oxycodone [From Percocet] Allergy Mild itching Verified 04/25/23 08:16 Family History Son Asthma Surgical History History of colonoscopy History of esophagogastroduodenoscopy (EGD) History of esophagogastroduodenoscopy (EGD) (~10/21/18) History of umbilical hernia repair History of ventral hernia repair (~04/2018) Social History Smoking Status: Never smoker alcohol intake: never ROS ROS ED ROS Narrative Epigastric abdominal pain. Nausea and vomiting. Review of Systems ROS Unobtainable: Denies due to encephalopathy Constitutional Constitutional ED: Denies chills or fever(s) ENT ENT ED: Denies ear pain Cardiovascular Cardiovascular: Denies chest pain Respiratory/Chest Respiratory/Chest: Denies cough Gastrointestinal Gastrointestinal: Reports abdominal pain, nausea and vomiting; Denies constip ation, diarrhea or melena Genitourinary Genitourinary ED: Denies dysuria or hematuria Musculoskeletal Musculoskeletal: Denies arthralgias Integumentary Denies abscess Neurologic Neurologic: Denies headache(s) Psychiatric Psychiatric: Denies anxiety Endocrine Endocrinology: Denies polydipsia Hematologic/Lymphatic Hematologic/Lymphatic: Denies easy bleeding Allergic/Immunologic Allergic/Immunologic ED: Denies mouth swelling or tongue swelling EXAM Physical Exam Narrative Exam Narrative: 47-year-old female no acute distress. Vital signs stable afebrile. H EENT exam unremarkable. Moist extremities. Neck nontender. No lymphadenopathy. Lungs clear to auscultation bilaterally. Heart regular rate and rhythm rate about 85 no murmur. Chest wall nontender. Abdomen soft nondistended normal bowel sounds without peritoneal signs. No right upper or right lower quadrant tenderness. Mild epigastric discomfort. No pulsatile mass. No distention. No hernia. No lower quadrant tenderness. No Díaz sign. No McBurney's point tenderness. Very benign abdominal exam. Moving all 4 extremities. Nontender. Back nontender. She is awake alert. No focal motor deficits. Const Vital Signs: 04/25/23 08:13 Temperature 96.4 F L Temperature Source Temporal Pulse Rate 91 Respiratory Rate 14 Blood Pressure 148/88 H Blood Pressure Mean 108 Pulse Ox 100 Oxygen Delivery Method Room Air Positive well nourished and well developed; Negative for obese, cachectic, contractures or unkempt General Appearance ED: well developed and NAD; Negative for unkempt, cachectic, contractures or pallor Nutritional Appearance: Negative for cachectic or obese HEENT Reports moist mucous membranes normocephalic and atraumatic; Negative for trauma or tenderness Eyes PERRL and EOMs intact bilaterally General Eye ED: Negative for pale conjunctiva or scleral icterus Neck no lymphadenopathy, supple and no JVD General: Negative for tenderness Resp normal respiratory effort and clear to auscultation bilaterally Effort and Inspection: Negative for respiratory distress Auscultation: Negative for rales, rhonchi or wheezes Cardio regular rate, regular rhythm, S1 normal heart sound, S2 normal heart sound and no murmurs Rate: Negative for bradycardia or tachycardic Rhythm: Negative for abnormal rhythm GI non-distended and no masses; Negative for non-tender Inspection: Negative for abdominal distention Auscultation: normoactive bowel sounds Palpation: soft and tender; Negative for guarding, rigid, hepatomegaly, splenomegaly, hernia, mass, pulsatile mass or rebound tenderness present Back/Spine no CVA tenderness General Back: Negative for CVA tenderness Cervical Spine: Negative for cervical spine tenderness Thoracic Spine / Upper Back: Negative for thoracic spinal tenderness Lumbar Spine / Lower Back: Negative for lumbar spinal tenderness Extremity full ROM General Extremety ED: Negative for edema or tenderness General Extremity: Negative for edema Neuro CN's II-XII intact bilaterally and moves all extremities Sensorium / Orientation: alert, oriented to person, oriented to place and oriented to time; Negative for orientation impaired, confused, lethargic or stuporous Motor Exam: strength 5/5 throughout Psych mental status grossly normal and thought process normal Appearance: Negative for unkempt Attitude: No agitated Mood & Affect: Negative for depressed, anxious or tearful Skin no wounds General Skin Exam: Negative for jaundice or pallor Lesions: no lesions and No lesion noted Rashes: no rashes and No rashes noted Trauma: Negative for abrasion Nails: Negative for discolored MDM MDM MDM Narrative Medical decision making narrative: 47-year-old female history of IBS with upper abdominal pain. No prior history of pancreatitis. Cholecystectomy earlier this year. She took Bentyl x3 without any relief. Currently she is waiting for nausea. Screening labs are being obtained. She has had prior CAT scans in the past without any significant findi ngs. She had an unremarkable HIDA scan prior to having her cholecystectomy. She will be given IV Protonix this may be secondary to acute gastritis. Repeat exam at 9:15 AM patient doing well. Abdomen benign. We went over her test results. Both she and her comfortable with her being discharged home. She does not need any further testing. She is on a proton pump inhibitor at home she will continue that. Follow-up with your doctor if not improving or return if worse. History & Record Review Discussion w/independent historian: Patient Additional record(s) reviewed:: Prior inpatient record, Prior outpatient record, Prior ED visit and Prior labs Lab Data Attestation: I reviewed the patient's lab results. Lab results narrative: CBC shows a slightly elevated white count of 14.3. H&H of 13 and 41. Platelet count 305. CMP shows normal anion gap of 5. Normal BUN and creatinine 11 and 0.7. Glucose is 123. Liver enzymes are normal. Lipase is normal at 23. Labs: Laboratory Results - last 24 hr 04/25/23 08:26 WBC 14.3 H RBC 4.41 Hgb 13.3 Hct 41.8 MCV 94.8 MCH 30.2 MCHC 31.8 L RDW Std Deviation 44.3 H RDW Coeff of Jose 12.7 Plt Count 305 MPV 9.7 Immature Gran % (Auto) 0.300 Neut % (Auto) 85.3 H Lymph % (Auto) 8.2 L [place] % (Auto) 5.7 Eos % (Auto) 0.1 Baso % (Auto) 0.4 Absolute Neuts (auto) 12.2 H Absolute Lymphs (auto) 1.18 Nucleated RBC % 0 Sodium 137 Potassium 3.5 Chloride 107 Carbon Dioxide 25.0 Anion Gap 5 BUN 11 Creatinine 0.79 Estim Creat Clear Calc 76.02 Est GFR (MDRD) Af Amer 100 Est GFR (MDRD) Non-Af 83 BUN/Creatinine Ratio 13.9 Glucose 123 H Calcium 8.5 Total Bilirubin 0.30 AST 7 L ALT 19 Alkaline Phosphatase 56 Total Protein 7.2 Albumin 3.7 Globulin 3.5 Albumin/Globulin Ratio 1.1 Lipase 23 Discharge Plan Triage Chief Complaint: Abd Pain ED Provider: Parth Sánchez Dx/Rx/DC Orders Clinical Impression: Gastritis, Abdominal pain Instructions: Abdominal Pain Prescriptions: No Action dicyclomine 20 mg tablet 20 mg PO QHS pantoprazole 40 mg tablet,delayed release (DR/EC) 40 mg PO QDAY bisacodyl 5 MG tablet 5 mg PO DAILY Primary Care Provider: Satnam Díaz Referrals: Satnam Díaz MD [Primary Care Provider] - As Needed Activity Restrictions/Additional Instructions: [place] diet increase slowly as tolerated. Continue to use your pantoprazole at home. Follow-up with your doctor if not improving or return if you are feeling worse such as vomiting or dark or bloody stools or fever. At this time your labs are unremarkable. Disposition Disposition: Home, Self Care
[2023-04-25 08:37] LABS: Absolute Lymphocyte Count 1.18 X10^3/uL (0.83-4.51); Absolute Neutrophil Count 12.2 X10^3/uL (2.0-7.7); Basophil# 0.06 X10^3/uL; Basophil% 0.4 % (0-1); Eosinophil# 0.01 X10^3/uL; Eosinophils% 0.1 % (0-5); Hematocrit 41.8 % (37-47); Hemoglobin 13.3 g/dL (12.0-15.0); Lymphocyte # 1.18 X10^3/ul (0.83-4.51); Lymphocyte % 8.2 % (19-41); Mean Corp Hgb Conc 31.8 g/dL (32-36); Mean Corpuscular Hgb 30.2 pg (27.0-32.0); Mean Corpuscular Volume 94.8 fL (81-99); Mean Platelet Vol. 9.7 fl (6.2-12.0); Monocyte# 0.81 X10^3/uL; Monocyte% 5.7 % (0-10); NRBC Flagged by Analyzer 0 % (0-5); Neutrophil % 85.3 % (47-70); Platelet Count 305 K/mm3 (150-450); RBC Distribution Width CV 12.7 % (11.6-14.6); RBC Distribution Width SD 44.3 fl (35.1-43.9); Red Blood Count 4.41 M/mm3 (4.2-5.4); White Blood Count 14.3 K/mm3 (4.4-11.0)
[2023-04-25 08:51] LABS: ALB/GLOB Ratio 1.1 RATIO (0.9-2.4); AST(SGOT) 7 U/L (15-37); Alanine Aminotransfer ALT/SGPT 19 U/L (13-56); Albumin, Serum 3.7 g/dL (3.2-5.0); Alkaline Phosphatase 56 U/L (45-117); Anion Gap 5 (5-15); BUN 11 mg/dL (7-18); BUN/Creat Ratio 13.9 RATIO (10-20); Calcium,Total 8.5 mg/dL (8.5-10.1); Chloride 107 mmol/L (98-107); Creatinine, Serum 0.79 mg/dL (0.55-1.02); EST Glomerular Filtration Rate 83 mL/min (>60); Est Glom Filt Rate - Afr Amer 100 mL/min (>60); Estimated Creatinine Clearance 76.02 ml/min; Globulin 3.5 g/dL (2.2-4.2); Glucose 123 mg/dL (74-106); Lipase 23 U/L (13-75); Potassium 3.5 mmol/L (3.5-5.1); Protein, Total 7.2 g/dL (6.4-8.2); Sodium Level 137 mmol/L (136-145)
== END 2023-04-25 09:21 | disposition home or self-care (01) ==
PROVIDERS: Emergency Provider Emergency Medicine; PCP Family Medicine; Visit Provider Emergency Medicine
DX: R10.9 Unspecified abdominal pain (principal); K29.70 Gastritis, unspecified, without bleeding; Z90.49 Acquired absence of other specified parts of digestive tract; K59.00 Constipation, unspecified; K58.9 Irritable bowel syndrome, unspecified; K21.9 Gastro-esophageal reflux disease without esophagitis; Z79.899 Other long term (current) drug therapy
CPT/HCPCS: 80053; 83690; 85025; 96365; 99283; A4216

== ENCOUNTER 2024-08-06 08:33 | Day surgery (SDC) | payer OTHER, SELFPAY ==
--- NOTE | 2024-08-04 12:22 | PCM.HP.BLA ---
History and Physical Date of Admission: 08/06/24 Expand All Collapse All Pre-Op History and Physical HPI: The patient is a 48 year old female presenting for pre-operative visit. She is scheduled for Hysteroscopy D&C and polypectomy , and IUD insertion for AUB, endometrial polyp on biopsy on 08/06/24. Procedure discussed along with risks, benefits and complications. Other alternatives discussed for management. Consent form signed? Yes. PAST MEDICAL HISTORY PAST MEDICAL HISTORY Diagnosis Date ? IBS (irritable bowel syndrome) ? Recurrent UTI PAST SURGICAL HISTORY PAST SURGICAL HISTORY Procedure Laterality Date ? COLONOSCOPY GEN ANES 2019 Dr Leiva - every 5 years due to polyps ? EGD 10/21/2018 mild gastritis ? EGD 05/01/2015 ? EGD W/O BRSH SPEC VARICIES INJ 02/27/2023 ? LAPAROSCOPIC CHOLECYSTECTOMY 12/26/2022 ? LIG/TRNSXJ FLP TUBE ABDL/VAG APPR UNI/BI Tubal ligation ? PAST SURGICAL HISTORY OF vein stripping ? RPR UMBILICAL HRNA 5 YRS/> REDUCIBLE Hernia repair, umbilical >5yr CURRENT MEDICATIONS Current Outpatient Medications Medication Sig Dispense Refill ? pantoprazole DR (PROTONIX) 40 mg tablet Take 1 tablet by mouth once daily 90 tablet 3 ? TRULANCE 3 mg tablet Take 1 tablet (3 mg) by mouth once daily. 90 tablet 3 ? sucralfate (CARAFATE) 1 gram tablet Take one tablet by mouth before meals and at bedtime as needed 100 tablet 0 ? miSOPROStol (CYTOTEC) 200 mcg tablet Insert 2 tablets vaginally night prior to EMB and 2 tablets morning of procedure. Each dose should be in vagina for 6-8 hours. 4 tablet 0 ? dicyclomine (BENTYL) 20 mg tablet Take 1 tablet by mouth daily at bedtime. 90 tablet 3 ? cephALEXin (KEFLEX) 250 mg capsule Take 1 capsule by mouth once daily. ? bisacodyl EC (DULCOLAX) 5 mg EC tablet Take 5 mg by mouth once daily as needed. No current facility-administered medications for this visit. ALLERGIES: Acetaminophen, Oxycodone, and Oxycodone-Acetaminophen PERSONAL HISTORY: SOCIAL HISTORY Social History Tobacco Use ? Smoking status: Former Current packs/day: 0.00 Types: Cigarettes Quit date: 09/08/2004 Years since quittin.8 ? Smokeless tobacco: Never ? Tobacco comments: quit smoking five months ago. (today's date is 03/27/2006) Vaping Use ? Vaping status: Never Used Substance Use Topics ? Alcohol use: Not Currently ? Drug use: Never FAMILY HISTORY: FAMILY HISTORY FAMILY HISTORY Problem Relation Age of Onset ? Emphysema Father smoker ? other (OVERDOSE) Mother AGE 48 REVIEW OF SYMPTOMS: negative except as noted above PHYSICAL EXAMINATION: VITALS: Blood pressure 150/82, height 162.6 cm (5' 4), weight 74.4 kg (164 lb), last menstrual period 05/27/2024. GENERAL: The patient is well nourished, well hydrated in no acute distress. , The patient is oriented to time, place, and person. NECK: rull range of motion IMPRESSION: 48 yo with AUB, endometrial polyp PLAN: Hysteroscopy, D&C, polypectomy with symphion, Liletta IUD insertion Pt has been counseled on risks/benefits and alternatives of surgery including but not limited to anesthesia, bleeding, infection, uterine perforation with subsequent injury to pelvic structures including bowel, bladder, ureters and vessels. Pt wishes to proceed with surgery at this time. Pre and post op instructions reviewed I have reviewed and updated past medical and surgical history, medications and allergies Genoveva Deleon MD Office Visit on 07/23/2024 Note shared with patient
--- NOTE | 2024-08-06 08:45 | PCM.PRE.AN2 ---
ASA Classification* ASA Classification ASA Classification: 2 Assessment & Plan Anesthesia* Anesthesia Assessment Anesthesia Assessment: Discussed sedation and/or anesthesia options, risks, benefits, and alternatives with patient/parents/legal guardian/POA. Questions invited. The patient/parents/legal guardian/POA seems to understand and agrees to proceed with anesthesia plan. Reviewed the physical assessment, medical history, allergy history and patient home medications list prior to surgery/procedure/anesthetic and documented any changes. Performed airway and anesthesia risk assessments. Anesthesia Type Anesthesia Type: MAC Anesthesia Focused Assessment* Airway Assessment Mouth opens: >3 cm Mallampati Score: II Focused Labs Anesthesia Preop lab: CBC WBC 14.3 K/mm3 (4.4-11.0) H 04/25/23 08:26 RBC 4.41 M/mm3 (4.2-5.4) 04/25/23 08:26 Hgb 13.3 g/dL (12.0-15.0) 04/25/23 08:26 Hct 41.8 % (37-47) 04/25/23 08:26 Plt Count 305 K/mm3 (150-450) 04/25/23 08:26 CHEMISTRY Potassium 3.5 mmol/L (3.5-5.1) 04/25/23 08:26 Sodium 137 mmol/L (136-145) 04/25/23 08:26 BUN 11 mg/dL (7-18) 04/25/23 08:26 Creatinine 0.79 mg/dL (0.55-1.02) 04/25/23 08:26 Glucose 123 mg/dL (74-106) H 04/25/23 08:26 TSH 1.25 uIU/mL (0.358-3.74) 01/14/19 12:20 COAG Tst Clinic Negative 08/15/22 08:51 Pre-Assessment Diagnosis/Proposed Procedure Planned Operative Procedure(s): HYSTEROSCOPY D&C POLYPECTOMY INSERTION LILETTA IUD Anesthesia History Anesthesia History - mentally retarded teacher: Anesthesia History - mentally retarded teacher Hx Hospitalization No 07/27/24 13:11 Any Problems With Anesthesia No 07/27/24 13:11 Cholinesterase deficiency No 07/27/24 13:11 You/Your Family Experience No 07/27/24 13:11 fever (hyperthermia) with Relationship Recent Exposure to Contagious No 10/21/18 08:05 Disease Does patient have nerve No 07/27/24 13:11 stimulator Patient instructed to have device shut off --Does patient have Pacemaker or ICD? When Was Last Pacemaker Check QUESTION #4 FULL TEXT: You/Your Family Experience fever (hyperthermia) with Anesthesia Last Oral Intake Last Oral intake: Last Oral Intake NPO since Meds taken in AM with sips of water? Meds patient instructed to take am of surgery PONV PONV - mentally retarded teacher: PONV - mentally retarded teacher Female Yes 07/27/24 13:11 HX of Motion Sickness No 07/27/24 13:11 HX of N/V After Surgery No 07/27/24 13:11 Non-Smoker Yes 07/27/24 13:11 Duration of Surgery greater No 07/27/24 13:11 than 60 minutes Number of Risk Factors 2 07/27/24 13:11 PONV Score Moderate Risk 07/27/24 13:11 Height & Weight Height & Weight: Anesthesia: Height & Weight Height 5 ft 4 in 01/27/24 07:56 Respiratory Assessment Respiratory Assessment - mentally retarded teacher: Respiratory Tract Infection Hx - mentally retarded teacher Hx Respiratory Tract Infection No 07/27/24 13:11 STOP Sleep Apnea STOP Sleep Apnea - mentally retarded teacher: STOP Sleep Apnea - mentally retarded teacher Hx Hypertension No 07/27/24 13:11 Hx Sleep Apnea No 07/27/24 13:11 CPAP BIPAP Do you snore loudly (louder No 07/27/24 13:11 than talking or can be heard Do you often feel tired/ No 07/27/24 13:11 fatigued/ sleepy during daytime? Has anyone observed you stop No 07/27/24 13:11 breathing during sleep? STOP Results Negative 07/27/24 13:11 QUESTION #5 FULL TEXT : Do you snore loudly (louder than talking or can be heard through closed doors)? 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 Specify any problems Hx of Preganancy in last 3 No 07/27/24 13:11 Months Nurse Filling Out Transfusion DSCHRIBER 07/27/24 13:11 & Questions: Date: 07/27/24 07/27/24 13:11 Time: 13:12 07/27/24 13:11 Patient unable to answer at this time (ie. confused, unrespo /Reproduction History /Reproductive History - mentally retarded teacher: /Reproductive Hx- mentally retarded teacher Hx Now No 07/27/24 13:11 Gestational Age (in weeks): EDC: Hx Hx Para Hx Section SAB No 07/27/24 13:11 Active Medications Active Medications: Current Medications Generic Name Dose Route Start Last Admin Trade Name Freq PRN Reason Stop Dose Admin Levonorgestrel 1 each 08/06/24 10:10 Levonorgestrel Iud (Liletta) INTRA-UTER 08/06/24 10:11 X1 [facility] Medical History History of IBS Former smoker Right lateral epicondylitis Acute pharyngitis, unspecified Urinary tract infection with hematuria Acute bronchitis, unspecified Encounter for screening for COVID-19 GERD (gastroesophageal reflux disease) History of duodenal ulcer Home Medications ?Medication ?Instructions ?Recorded ?Last Taken ?Type dicyclomine 20 mg tablet 20 mg PO QHS PRN ABD CRAMPS 04/09/18 Unknown History pantoprazole 40 mg tablet,delayed 40 mg PO QDAY 04/09/18 10/21/18 06:45 History release d-mannose 500 mg capsule 500 mg PO DAILY 01/27/24 Unknown History plecanatide 3 mg tablet (Trulance) 3 mg PO QDAY 01/27/24 Unknown History cephalexin 250 mg capsule 250 mg PO PRN PRN AFTER INTERCOURSE 07/27/24 Unknown History sucralfate 1 gram tablet 1 g PO BID PRN PRN GI 07/27/24 Unknown History Allergy/AdvReac Type Severity Reaction Status Date / Time acetaminophen (From Percocet) Allergy Mild itching Verified 07/27/24 13:08 oxycodone (From Percocet) Allergy Mild itching Verified 07/27/24 13:08 Family History Son Asthma Surgical History Hx laparoscopic cholecystectomy Hx of cholecystectomy History of esophagogastroduodenoscopy (EGD) (~10/21/18) History of ventral hernia repair (~04/2018) History of colonoscopy History of esophagogastroduodenoscopy (EGD) History of umbilical hernia repair Social History household members: spouse Smoking Status: Former smoker alcohol intake: never Review of Systems (Anesthesia) ROS Narrative System reviewed and no additional complaints, except as documented.
[2024-08-06 08:53] VITALS: BP 131/89; PULSE 73; RESP 16; TEMP 36.3; O2SAT 100; BMI 28.3
[2024-08-06 08:55] LABS: Internal QC Validated? YES +Cl - CLEAR BKGD; Pregnancy, Urine Negative Negative
--- NOTE | 2024-08-06 09:40 | DCINST_ITS ---
Discharge Instructions Diet Discharge Diet: No restrictions DC O2, CPAP, BIPAP needs Additional Home O2 Discharge instructions: No Dressing / Incision May resume sexual activity in: 1 week Dressing / Incision Call your doctor if you observe: Fever of 101 or Higher, Inability to urinate, Using more than 1 pad per hour and Uncontrolled pain Follow Up Care Please Follow Up With: Genoveva Trotter MD When: 1-2 weeks post OP if you need an appointment please call [phone] Test Results: Test results from this visit will be discussed in further detail at your follow- up appointment, if applicable. Discharge Plan Admission Attending Provider: Genoveva Trotter Primary Care Provider: Satnam Díaz Instructions Print Language: Lithuanian Discharge Orders/Prescriptions Prescriptions: No Action dicyclomine 20 mg tablet 20 mg PO QHS PRN (Reason: ABD CRAMPS) pantoprazole 40 mg tablet,delayed release (DR/EC) 40 mg PO QDAY Trulance 3 mg tablet 3 mg PO QDAY d-mannose 500 mg capsule 500 mg PO DAILY cephalexin 250 mg capsule 250 mg PO PRN PRN (Reason: AFTER INTERCOURSE) sucralfate 1 gram tablet 1 g PO BID PRN PRN (Reason: GI ) Referrals / Follow Up: Satnam Díaz MD [Primary Care Provider] - Disposition Disposition (needs filled in before D/C Order can be placed): Home, Self Care
--- NOTE | 2024-08-06 09:42 | OP.PCM_ITS ---
Operative Report (Standard) Operative Information Surgery/Procedure Performed: Hysteroscopy, D&C, polypectomy with symphion and Liletta IUD insertion Surgeon: Genoveva Trotter Date of Procedure: 08/06/24 Procedure Start Time: 09:59 Procedure Stop Time: 10:12 Pre-Operative Diagnosis: AUB, Endometrial polyp Post-Operative Diagnosis: AUB, Endocervical polyp Select all DRAINS/GRAFTS/IMPLANTS that apply: Implanted device (Liletta IUD) Implanted device details: Liletta IUD Type of Anesthesia: MAC Estimated Blood Loss: <5cc Fluids Replaced: none Specimen collected: Yes Description of specimen(s) removed: endometrial curettings, endocervical Polyp Description of surgery: Informed consent was obtained the patient was taken the operating room she was placed in supine position. She was given anesthesia. She was then placed in the [facility] an acute care hospital where she was prepped and draped in the normal sterile fashion. At this time the weighted speculum was placed in the posterior fornix of vagina. Single-tooth tenaculum was used to gently grasp the anterior lip the cervix. At this time the uterine cavity was sounded to approximately 7.5 cm. Gentle dilatation was performed once adequate dilatation of the cervix was achieved the hysteroscope using normal saline as a distention medium was placed. Tubal ostia visualized. Symphion resecting device used to obtain endometrial curettings and to perform polypectomy of endocervical polyp that was appreciated on posterior aspect, as well to perform sampling of endometrium which appeared normal. Tissue will be sent to pathology for evaluation. Liletta IUD was opened and placed at uterine fundus without difficulty- strings cut to 2.5cm from cervical os. Tenaculum removed. Good hemostasis. Instrument, lap count correct x 2. Vaginal Sweep was negative. fluid deficit 500cc Surgical Findings: Uterus sounded to 7.5cm Tubal ostia visible- normal endometrium. 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
[2024-08-06] MEDS: Levonorgestrel IUD (Liletta) 1 EACH INTRA-UTER (10:09)
--- NOTE | 2024-08-06 10:10 | EMB_PTH ---
PATIENT: LING MARTINEZ LOC: [facility] [place] U#:[id number] AGE/SX: 48/F ROOM: RE08/06/[address]: Dr. Genoveva Trotter, MDDOB: 1975 BED: DIS: 08/06/2024 SPEC #: [id number] RECD: 08/06/24 11:02 STATUS: ELIDA LOPEZ #: [id number] JUAN MANUEL: 08/06/24 10:[address]: Genoveva Trotter DEPT: SURGICAL PATHOLOGY RECD BY: Heather Delgado ENTERED: 08/06/24 11:51 SP TYPE: ENDOM BX/C JOSEP DR: Dr. Satnam Díaz MD Tissues: Endometrium, NOS Procedures: Surgery Specimen Level IV HEADER OPERATION: Hysteroscopy, D&C, polypectomy PRE-OP DIAGNOSIS: Abnormal uterine bleeding, endometrial polyp TISSUE SUBMITTED: Endometrial curettings and endocervical polyp MICROSCOPIC DIAGNOSIS Endometrial curettings and endocervical polyp, biopsy: Polypoid fragments of weakly proliferative endometrium. Rare strips of benign superficial endocervix. AM. 08/09/2024 MICROSCOPIC DESCRIPTION Slides are reviewed. GROSS DESCRIPTION Received in fixative is one container labeled with the patient's name and designated Endometrial curettings and endocervical polyp. The specimen consists of multiple irregular fragments of light song soft tissue that in aggregate measure 2.0 x 2.0 x 0.2 cm. The specimen is totally submitted in one cassette. AM 08/06/2024 TC:5 CPT:08517
[2024-08-06 10:22] VITALS: BP 131/89; BP 92/61; PULSE 67; PULSE 68; RESP 16; RESP 18; TEMP 36.3; O2SAT 96; O2SAT 97
--- NOTE | 2024-08-06 10:22 | PCM.POST.ANE ---
Anesthesia: Postop Eval I Current Vital Signs Temperature: 97.3 F Pulse Rate: 68 Blood Pressure: 92/61 Respiratory Rate: 18 Pulse Ox: 97 Assessment Airway patent: Yes Spontaneous unlabored respirations: Yes nausea: No Vomiting: No Anesthesia Complication: No Fluid Hydration Crystalloid volume administer (ml): 10 Total IV fluid infused: 10 Progress Note Anesthesia document: Postop Eval 1 completed: Yes
[2024-08-06 10:25] VITALS: BP 131/89; BP 94/60; PULSE 64; RESP 16; O2SAT 96
[2024-08-06 10:30] VITALS: BP 131/89; BP 98/66; PULSE 72; RESP 16; O2SAT 97
[2024-08-06 10:35] VITALS: BP 105/75; BP 131/89; PULSE 69; RESP 16; TEMP 36.1; O2SAT 98
[2024-08-06 10:50] VITALS: BP 131/89
--- NOTE | 2024-08-06 11:02 | POSTOPAN2_ITS ---
Anesthesia Postop Eval I Sum Postop Eval Completion status Anesthesia document: Postop Eval 1 completed: Yes Anesthesia Postop Eval I Summary Anesthesia Postop Eval I Summary: Anesthesia Postop Eval I: Assessment Summary Airway patent Yes 08/06/24 10:22 [email or web address] Spontaneous unlabored Yes 08/06/24 10:22 [email or web address] respirations Mental status nausea No 08/06/24 10:22 [employer] Vomiting No 08/06/24 10:22 [email or web address] Anesthesia Postop Eval I: Fluid Summary Crystalloid volume administer 10 08/06/24 10:22 [employer] (ml) Colloids volume administered ( ml) Blood Product volume administered (ml) Total IV fluid infused 10 08/06/24 10:22 [email or web address] Anesthesia Postop Eval I: Summary Notes Anesthesia Complication No 08/06/24 10:22 [email or web address] Anesthesia Complication Comment: Post-operative progress note Anesthesia: Postop Eval II Evaluation Mental status: Awake Pain Level: 0 nausea: No Vomiting: No
--- NOTE | 2024-08-06 11:02 | PCM.POSTANE2 ---
Anesthesia Postop Eval I Sum Postop Eval Completion status Anesthesia document: Postop Eval 1 completed: Yes Anesthesia Postop Eval I Summary Anesthesia Postop Eval I Summary: Anesthesia Postop Eval I: Assessment Summary Airway patent Yes 08/06/24 10:22 [email or web address] Spontaneous unlabored Yes 08/06/24 10:22 [employer] respirations Mental status nausea No 08/06/24 10:22 [employer] Vomiting No 08/06/24 10:22 [employer] Anesthesia Postop Eval I: Fluid Summary Crystalloid volume administer 10 08/06/24 10:22 [employer] (ml) Colloids volume administered ( ml) Blood Product volume administered (ml) Total IV fluid infused 10 08/06/24 10:22 [employer] Anesthesia Postop Eval I: Summary Notes Anesthesia Complication No 08/06/24 10:22 [employer] Anesthesia Complication Comment: Post-operative progress note Anesthesia: Postop Eval II Evaluation Mental status: Awake Pain Level: 0 nausea: No Vomiting: No
== END 2024-08-06 10:55 | disposition home or self-care (01) ==
LOC: SDC 08:33 → AC 08:35
PROVIDERS: PCP Family Medicine; Referring Provider Obstetrics & Gynecology; Visit Provider Obstetrics & Gynecology
PROC: 0UB98ZZ Excision of Uterus, Via Natural or Artificial Opening Endoscopic (ICD-10-PCS; CPT 58558; principal; 2024-08-06 09:55)
DX: N93.9 Abnormal uterine and vaginal bleeding, unspecified (principal); N84.1 Polyp of cervix uteri; K58.9 Irritable bowel syndrome, unspecified; N84.0 Polyp of corpus uteri; Z87.891 Personal history of nicotine dependence; K21.9 Gastro-esophageal reflux disease without esophagitis; Z87.19 Personal history of other diseases of the digestive system; Z90.49 Acquired absence of other specified parts of digestive tract; Z87.440 Personal history of urinary (tract) infections
CPT/HCPCS: 58300; 58558; 00952; 81025; 88305; A4216; J2405

== ENCOUNTER 2025-02-08 16:03 | Outpatient (CLI) | payer OTHER, SELFPAY | END 2025-02-08 23:59 | disposition home or self-care (01) | LOC: MTLAB 16:06 | PROVIDERS: PCP Family Medicine; Referring Provider Orthopaedic Surgery Sports Medicine; Visit Provider Orthopaedic Surgery Sports Medicine | DX: M77.11 Lateral epicondylitis, right elbow (principal) | CPT/HCPCS: 36415 ==